=== PATIENT | male | born 1940 | race Caucasian/White ===

== ENCOUNTER 2016-08-20 14:00 | Emergency (ER) | payer MEDICARE ==
[2016-08-20] MEDS ORDERED: Sodium Chloride 0.9% 10 ML Syringe FLUSH PRN (14:11)
[2016-08-20] MEDS ORDERED: Rocuronium 50 MG/5 ML Vial ONE (14:14)
[2016-08-20] MEDS ORDERED: Propofol 200 MG/20 ML SDV IV ONE (14:30)
--- NOTE | 2016-08-20 14:31 | CR ---
Mild cardiomegaly. ET tube in satisfactory position. No focal consolidation. Interstitial thickening in a be chronic correlate for mild vascular congestion. No pneumothorax.
--- NOTE | 2016-08-20 14:57 | EDM.PDOC ---
ED HPI GENERAL MEDICAL PROBLEM - General Chief Complaint: Respiratory Problem Stated Complaint: BREATHING ISSUES Time Seen by Provider: 08/20/16 14:10 Source of Information: Reports: EMS, Family History Limitations: Reports: Altered mental status - History of Present Illness INITIAL COMMENTS - FREE TEXT/NARRATIVE: This man was brought in by EMS after he was found at home unresponsive by his nephew. His nephew said he knows very little about him but that he has had respiratory problems in the past. This man does not go to the doctor. He had difficulty breathing yesterday which seemed worse this morning and his nephew try to get him to come to the hospital but he refused. He has an old oxygen concentrator left over from some other patient that he was using. His nephew checked on him later in the day found him unresponsive EMS was called. EMS called for the air ambulance prior to transporting him air ambulance is expected to live shortly at the time of his presentation here. There is no other history known on this patient revealed no any medication or allergies. There's no other past medical history known except something about respiratory problems. Patient lives alone and is considered to be a loner. - Related Data Allergies Allergy/AdvReac Type Severity Reaction Status Date / Time No Known Allergies Allergy Verified 08/20/16 14:33 Home Meds: Home Meds NK [No Known Home Meds] 08/20/16 [History] ED ROS GENERAL - Review of Systems Review Of Systems: Unable To Obtain ED EXAM, GENERAL - Physical Exam Exam: See Below Exam Limited By: Physical impairment General Appearance: obtunded (The patient does open his eyes upon some painful stimulus otherwise he seems unresponsive. He appears to be in severe respiratory distress. His respirations same rapid and shallow.) Eye Exam: right eye: other (Pupils) Ears: normal external exam Throat/Mouth: Other (No attempt made to check gag reflex in this patient) Head: atraumatic Respiratory/Chest: other (Very decreased breath sounds with very little air movement.) Cardiovascular: regular rate, rhythm, other (Unable to palpate any peripheral pulses.) GI/Abdominal: soft Extremities: other (No trauma no pedal edema) Neurological: other (Patient is obtunded except as above) Skin Exam: Cool ( skin is cool hands are cold temperature was 97.5 tympanic patient was placed under blankets) Course - Orders/Labs/Meds Orders: Active Orders 24 hr Category Date Time Status EKG Documentation Completion [RC] ASDIRECTED Care 08/20/16 14:11 Active ABG [BLOOD GAS ARTERIAL] [BG] Stat Lab 08/20/16 14:12 Ordered CBC WITH AUTO DIFF [HEME] Urgent Lab 08/20/16 14:11 Ordered COMPREHENSIVE METABOLIC PN,CMP [CHEM] Urgent Lab 08/20/16 14:11 Ordered DRUG SCREEN, URINE [URCHEM] Urgent Lab 08/20/16 14:11 Uncollected LACTIC ACID [CHEM] Stat Lab 08/20/16 14:11 Ordered PRO B-TYPE NATRIUR PEPT,BNPPRO [CHEM] Urgent Lab 08/20/16 14:11 Ordered TROPONIN I [CHEM] Urgent Lab 08/20/16 14:11 Ordered Sodium Chloride 0.9% [Saline Flush] Med 08/20/16 14:11 Active 10 ml FLUSH ASDIRECTED PRN Saline Lock Insert [OM.PC] Urgent Oth 08/20/16 14:11 Ordered EKG 12 Lead [EK] Urgent Ther 08/20/16 14:11 Ordered Medication Orders Sodium Chloride (Saline Flush) 10 ml FLUSH ASDIRECTED PRN PRN Reason: Keep Vein Open Meds: Medications Generic Name Dose Route Start Last Admin Trade Name Freq PRN Reason Stop Dose Admin Sodium Chloride 10 ml 08/20/16 14:11 Saline Flush FLUSH ASDIRECTED PRN Keep Vein Open Discontinued Medications Generic Name Dose Route Start Last Admin Trade Name Freq PRN Reason Stop Dose Admin Propofol Confirm 08/20/16 14:14 Diprivan 100 Ml Administered 08/20/16 14:15 Dose 100 mls @ as directed .ROUTE .STK-MED ONE Rocuronium Edon Confirm 08/20/16 14:14 08/20/16 14:36 Zemuron Administered 08/20/16 14:15 Not Given Dose 50 mg .ROUTE .STK-MED ONE - Re-Assessments/Exams Free Text/Narrative Re-Assessment/Exam: 08/20/16 14:57 An EKG shows a sinus tachycardia at 107 there is some bigeminy left anterior fascicular block there may be some mild ST depression in anterolateral leads there's no other EKG. This patient was examined by him to be in severe respiratory distress. Anesthesia was called promptly arrived and intubated him after giving him 100 mg of propofol. He did not receive any paralytics. Lab was present and attempting to draw blood for labs but was never successful. There is great difficulty in establishing peripheral IV so the IO line was begun. The patient's blood pressure dropped to approximately 60 systolic after the intubation and fluids were opened however before starting any pressors pressure had come back up greater than 100. A head CT had been ordered however upon speaking with his nephew I realize this was all respiratory so the head CT was postponed. Arterial blood gas was ordered but lab was unable to draw this. Prior to transporting patients lab informed me that they were never able to get any blood on the patient. Call was placed to Dr. Vanessa our hospitalist and felt that since the air crew was already present that it would be unwise to put him in our ICU her. The air and it is crew arrived promptly and transported the patient. I spoke with the associate business analyst at [facility] in [place]. I explained the situation with the patient the lack of history inability to draw labs. He was intubated and on a respirator and vital signs appear to be stable enough for transport at the time he left the ER. Chest x-ray didn't show an obvious infiltrate or congestive failure. Departure - Departure Time of Disposition: 15:02 Disposition: DC/Tfer to Acute Hospital 02 Condition: critical Clinical Impression: Respiratory failure - My Orders Last 24 Hours: My Active Orders 08/20/16 14:11 EKG Documentation Completion [RC] ASDIRECTED CBC WITH AUTO DIFF [HEME] Urgent COMPREHENSIVE METABOLIC PN,CMP [CHEM] Urgent DRUG SCREEN, URINE [URCHEM] Urgent LACTIC ACID [CHEM] Stat PRO B-TYPE NATRIUR PEPT,BNPPRO [CHEM] Urgent TROPONIN I [CHEM] Urgent Sodium Chloride 0.9% [Saline Flush] 10 ml FLUSH ASDIRECTED PRN Saline Lock Insert [OM.PC] Urgent EKG 12 Lead [EK] Urgent 08/20/16 14:12 ABG [BLOOD GAS ARTERIAL] [BG] Stat - Assessment/Plan Last 24 Hours: My Active Orders 08/20/16 14:11 EKG Documentation Completion [RC] ASDIRECTED CBC WITH AUTO DIFF [HEME] Urgent COMPREHENSIVE METABOLIC PN,CMP [CHEM] Urgent DRUG SCREEN, URINE [URCHEM] Urgent LACTIC ACID [CHEM] Stat PRO B-TYPE NATRIUR PEPT,BNPPRO [CHEM] Urgent TROPONIN I [CHEM] Urgent Sodium Chloride 0.9% [Saline Flush] 10 ml FLUSH ASDIRECTED PRN Saline Lock Insert [OM.PC] Urgent EKG 12 Lead [EK] Urgent 08/20/16 14:12 ABG [BLOOD GAS ARTERIAL] [BG] Stat
[2016-08-20 15:06] VITALS: BP 120/73
--- NOTE | 2016-08-21 00:58 | ANES ---
DATE OF SERVICE: 08/20/2016 I was paged at the emergency room emergently for the patient. Trell is a 76-year-old male patient, brought in today unresponsive and respiratory distress. VALENTINA #[id number]. Upon arrival, patient opened his eyes to voice but did not follow commands. Unaware of allergies, medications, or patient history at this point. Significant respiratory depression. 100 of propofol through the IV. I tried to visualize with cryotherapy with MAC 3. Unable to visualize anything, but epiglottis. I attempted placement of a bougie, 1st attempt was in the esophagus. Upon reposition and grabbing the epiglottis with the MAC 3 blade, I was able to place the bougie without difficulty. Placed #8.5 endotracheal tube. Bougie removed, bilateral breath sounds noted. Chest rise continued in the 90s throughout the procedure. Heart rate and blood pressure unchanged throughout the procedure. He tolerated procedure quite well. Reported off to physician in the ER. Respiratory therapy secured the endotracheal tube. Again vitals were unchanged throughout the procedure and reported off to physician. Fernando Avlaos CRNA /[id number]
== END 2016-08-20 15:06 ==
LOC: JP.ED 14:00
DX: J96.90 Respiratory failure, unspecified, unspecified whether with hypoxia or hypercapnia (principal)
CPT/HCPCS: 31500; 36415; 71010; 80053; 83605; 83880; 84484; 85025; 93005; 93010; 96374; 99285; J2704